=== PATIENT | female | born 1960 | race African-American/Black ===

== ENCOUNTER 2017-03-17 13:48 | Inpatient (IN) | payer OTHER ==
[2017-03-17 17:08] VITALS: BMI 30.3
--- NOTE | 2017-03-17 17:38 | HP ---
CIWA Score - CIWA Score Nausea/Vomitin Muscle Tremors: 3 Anxiety: 3 Agitation: 3 Paroxysmal Sweats: 2 Orientation: 0-Oriented Tacttile Disturbances: 2-Mild Itch/Numbness/Burn Auditory Disturbances: 2-Mild Harshness/Frighten Visual Disturbances: 2-Mild Sensitivity Headache: 2-Mild CIWA-Ar Total Score: 22 Admission ROS BHS - HPI Chief Complaint: I NEED HELP TO STOP DRINKING ALCOHOL Allergies/Adverse Reactions: Allergies Allergy/AdvReac Type Severity Reaction Status Date / Time chlorpromazine HCl Allergy Intermediate Swelling Verified 03/17/17 17:30 [From Thorazine] fluphenazine enanthate Allergy Verified 03/17/17 17:30 [From Prolixin] fluphenazine HCl Allergy Verified 03/17/17 17:30 [From Prolixin] molindone HCl [From Moban] Allergy Verified 03/17/17 17:30 thioridazine HCl Allergy Verified 03/17/17 17:30 [From Mellaril] thiothixene [From Navane] Allergy Verified 03/17/17 17:30 thiothixene HCl [From Navane] Allergy Verified 03/17/17 17:30 History of Present Illness: THIS 57 YEARS OLD FEMALE WITH ALCOHOL DEPENDENCE,SEEKING DETOX FROM ALCOHOL, LAST DETOX [facility] 08/15/15 TO 08/19/15 SYNCOPE 2 MOTHS AGO LONGEST PERIOD OF SOBRIETY 2 YEARS GLAUCOMA SCHIZOPHRENIA Exam Limitations: No Limitations - Ebola screening Have you traveled outside of the country in the last 21 days: No Have you had contact with anyone from an Ebola affected area: No Have you been sick,other than usual withdrawal symptoms: No Do you have a fever: No - Review of Systems Constitutional: Loss of Appetite, Malaise, Changes in sleep, Weakness EENT: reports: Nose Congestion, Other (GLAUCOMA POOR VISION BOTH EYES) Respiratory: reports: No Symptoms reported Cardiac: reports: No Symptoms Reported GI: reports: Diarrhea, Nausea, Poor Appetite, Vomiting : reports: No Symptoms Reported Musculoskeletal: reports: Back Pain, Muscle Pain Integumentary: reports: Dryness Neuro: reports: Headache, Tremors Endocrine: reports: No Symptoms Reported Hematology: reports: No Symptoms Reported Psychiatric: reports: other (PARANOID SCHIZOPHRENIA) Other Systems: Reviewed and Negative Patient History - Patient Medical History Hx Anemia: No Hx Asthma: No Hx Chronic Obstructive Pulmonary Disease (COPD): No Hx Cancer: No Hx Cardiac Disorders: No Hx Congestive Heart Failure: No Hx Hypertension: Yes (ON AMLOIDYPINE 10 MGS PO DAILY) Hx Hypercholesterolemia: No Hx Pacemaker: No HX Cerebrovascular Accident: No Hx Seizures: No Hx Dementia: No Hx Diabetes: No Hx Gastrointestinal Disorders: No Hx Liver Disease: No Hx Genitourinary Disorders: No Hx Sexually Transmitted Disorders: No Hx Renal Disease (ESRD): No Hx Thyroid Disease: No Hx Human Immunodeficiency Virus (HIV): No (NEGATIVE HX LAST 12/26) Hx Hepatitis C: No Hx Depression: Yes Hx Suicide Attempt: Yes (admitted to [facility] 06/2015) Hx Bipolar Disorder: No Hx Schizophrenia: Yes (PARANOID SCHIZOPHRENIA) Other Medical History: NO SUICIDAL,NO HOMICIDAL - Patient Surgical History Past Surgical History: No Hx Neurologic Surgery: No Hx Cataract Extraction: No Hx Cardiac Surgery: No Hx Lung Surgery: No Hx Breast Surgery: No Hx Breast Biopsy: No Hx Abdominal Surgery: No Hx Appendectomy: No Hx Cholecystectomy: No Hx Genitourinary Surgery: No Hx Section: No Hx Orthopedic Surgery: No Anesthesia Reaction: No - PPD History Documented Results: Negative w/o proof Date: 11/18/14 Results: negative PPD to be Administered?: Yes - Reproductive History Patient is a Female of Child Bearing Age (11 -55 yrs old): No Last Menstrual Period: 07/10/08 Patient : No - Smoking Cessation Smoking history: Current every day smoker Have you smoked in the past 12 months: Yes Aproximately how many cigarettes per day: 20 Cigars Per Day: 0 Hx Chewing Tobacco Use: No Initiated information on smoking cessation: Yes 'Breaking Loose' booklet given: 03/17/17 - Substance & Tx. History Hx Alcohol Use: Yes Hx Substance Use: Yes Substance Use Type: Alcohol Hx Substance Use Treatment: Yes ([facility] 08/15/15 TO 08/19/15) Family Disease History - Family Disease History Family Disease History: Other: Father (alcohol,), Mother (alcohol), Brother (alcohol), Sister (alcohol) Admission Physical Exam BHS - Vital Signs Vital Signs: Vital Signs - 24 hr 03/17/17 17:01 Temperature 97 F L Pulse Rate 110 H Respiratory 20 Rate Blood Pressure 132/82 - Physical General Appearance: Yes: Moderate Distress, Tremorous, Irritable, Sweating, Anxious HEENTM: Yes: Normal ENT Inspection, Normocephalic, ELMO, Nasal Congestion, Other (GLAUCOMA) Respiratory: Yes: Lungs Clear, Normal Breath Sounds, No Respiratory Distress Neck: Yes: Within Normal Limits Breast: Yes: Breast Exam Deferred Cardiology: Yes: Within Normal Limits, Regular Rhythm, Regular Rate, S1, S2 Abdominal: Yes: Within Normal Limits, Normal Bowel Sounds, Non Tender, Flat, Soft Genitourinary: Yes: Within Normal Limits Back: Yes: Normal Inspection, Muscle Spasm Musculoskeletal: Yes: Back pain, Muscle Pain Extremities: Yes: Tremors Neurological: Yes: book repairer II-XII NML intact, Fully Oriented, Alert, Motor Strength 5/5 Integumentary: Yes: Dry Lymphatic: Yes: Within Normal Limits - Diagnostic (1) Alcohol dependence with uncomplicated withdrawal Current Visit: Yes Status: Acute (2) Alcohol dependence with intoxication Current Visit: Yes Status: Acute (3) Glaucoma Current Visit: No Status: Chronic (4) Nicotine dependence Current Visit: No Status: Chronic (5) Obesity Current Visit: No Status: Chronic (6) Paranoid schizophrenia Current Visit: No Status: Chronic (7) Right knee injury Current Visit: No Status: Chronic (8) Syncope Current Visit: No Status: Suspected (9) Arthritis of both knees Current Visit: Yes Status: Acute Cleared for Admission [facility] - Detox or Rehab [facility] Level of Care: Medically Managed Detox Regimen/Protocol: Librium [facility] Breath Alcohol Content Breath Alcohol Content: 0.193 Urine Pregancy Test - Result Urine Test Results: Negative- NO Line Present Urine Drug Screen - Results Drug Screen Negative: Yes
[2017-03-17] MEDS ORDERED: hydrOXYzine PAMOATE 50 MG CAPSULE (FP) PO PRN (17:49)
[2017-03-17] MEDS ORDERED: ACETAMINOPHEN 325 MG TABLET (FP) PO PRN (17:49)
[2017-03-17] MEDS ORDERED: diphenhydrAMINE HCL 50 MG CAPSULE PO PRN (17:49)
[2017-03-17] MEDS ORDERED: LOPERAMIDE HCL 2 MG CAPSULE PO PRN (17:49)
[2017-03-17] MEDS ORDERED: MAGNESIUM CITRATE 300 ML BOTTLE PO PRN (17:49)
[2017-03-17] MEDS ORDERED: MAG HYDROX/AL HYDROX/SIMETH 30 ML UNIT-DOSE CUP PO PRN (17:49)
[2017-03-17] MEDS ORDERED: P-EPHED 60MG/TRIPROLIDI 2.5MG TABLET PO PRN (17:49)
[2017-03-17] MEDS ORDERED: MENTHOL/PHENOL 1 EACH UD MM PRN (17:49)
[2017-03-17] MEDS ORDERED: chlordiazePOXIDE HCL 25 MG CAPSULE PO PRN (17:49)
[2017-03-17] MEDS ORDERED: guaiFENesin/D-METHORPHAN HB 10 ML UNIT-DOSE CUPS PO PRN (17:49)
[2017-03-17] MEDS ORDERED: MAGNESIUM HYDROX 2400MG/30ML ORAL SUSPENSION 30 ML CUP PO PRN (17:49)
[2017-03-17] MEDS ORDERED: IBUPROFEN 400 MG TABLET (FP) PO PRN (17:49)
[2017-03-17] MEDS ORDERED: chlordiazePOXIDE HCL 25 MG CAPSULE PO ONE (19:00)
[2017-03-17] MEDS: NICOTINE 21 MG/24 HOURS TOPICAL PATCH TD SCH (19:54)
[2017-03-17] MEDS: TIMOLOL 0.5% OPHTHALMIC SOL 5 ML BOTTLE OU SCH (22:16)
[2017-03-17] MEDS: THIAMINE HCL 100 MG TABLET (FP) PO SCH (22:16)
[2017-03-17] MEDS: BENZTROPINE MESYLATE 1 MG TABLET (FP) PO SCH (22:16)
[2017-03-17] MEDS: chlordiazePOXIDE HCL 25 MG CAPSULE PO SCH (22:17)
[2017-03-17] MEDS: LATANOPROST 0.005% OPHTH SOLN 2.5ML BOTTLE OU SCH (23:01)
[2017-03-18 00:13] LABS: URINE APPEARANCE CLEAR; URINE BILIRUBIN NEGATIVE (NEGATIVE); URINE BLOOD NEGATIVE (NEGATIVE); URINE COLOR COLORLESS; URINE GLUCOSE (UA) NEGATIVE (NEGATIVE); URINE KETONE NEGATIVE (NEGATIVE); URINE LEUK ESTERASE NEGATIVE (NEGATIVE); URINE NITRITE NEGATIVE (NEGATIVE); URINE PROTEIN NEGATIVE (NEGATIVE); URINE UROBILINOGEN NEGATIVE E.U./dl (0.2-1.0)
[2017-03-18] MEDS: chlordiazePOXIDE HCL 25 MG CAPSULE PO SCH ×4 (05:45→22:21)
--- NOTE | 2017-03-18 07:15 | CONSULT ---
[facility] Psychiatric Consult - Data Date of interview: 03/18/17 Admission source: [facility] Identifying data: This isn 57 years old female with psychiatric hospitalization history, history of Schizophrenia, Substance Abuse History: - Smoking Cessation. Smoking history: Current every day smoker. Have you smoked in the past 12 months: Yes. Aproximately how many cigarettes per day: 20. Cigars Per Day: 0. Hx Chewing Tobacco Use: No. Initiated information on smoking cessation: Yes. 'Breaking Loose' booklet given : 03/17/17. - Substance & Tx. History. Hx Alcohol Use: Yes. Hx Substance Use : Yes. Substance Use Type: Alcohol. Hx Substance Use Treatment: Yes ([facility] 01/24 TO 08/19/15) Medical History: Both knees arthritis, Obesity, Glaucoma history, Syncope history, Psychiatric History: Patient reports history of Paranoid Schizophrenia with monthly Haldol decanoate injections, last one 02/24/2017 - 75ml. Cogenitin 1mg po bid Physical/Sexual Abuse/Trauma History: Denies Additional Comment: Haldol decanoate injections, last one 02/24/2017 - 75ml. Cogenitin 1mg po bid Mental Status Exam - Mental Status Exam Alert and Oriented to: Person Cognitive Function: Fair Patient Appearance: Unkempt Mood: Sad Affect: Flat Patient Behavior: Sedated Speech Pattern: Delayed Voice Loudness: Mildly Soft/Quiet Thought Process: Circumstantial, Goal Oriented Thought Disorder: Being Controlled Hallucinations: Denies Suicidal Ideation: Denies Homicidal Ideation: Denies Insight/Judgement: Fair Sleep: Difficulty falling asleep Appetite: Weight gain Muscle strength/Tone: Mild Hypotonicity Gait/Station: Shuffling Additional Comments: Haldol decanoate injections, last one 02/24/2017 - 75ml. Cogenitin 1mg po bid Psychiatric Findings - Problem List ([place] 1, 2,3) (1) Alcohol dependence with intoxication Current Visit: Yes Status: Acute (2) Alcohol dependence with uncomplicated withdrawal Current Visit: Yes Status: Acute (3) Cocaine abuse Current Visit: No Status: Acute (4) PCP abuse Current Visit: No Status: Acute (5) Alcohol dependence Current Visit: No Status: Chronic (6) Cannabis dependence Current Visit: No Status: Chronic (7) Nicotine dependence Current Visit: No Status: Chronic (8) Paranoid schizophrenia Current Visit: No Status: Chronic - Initial Treatment Plan Initial Treatment Plan: Haldol decanoate injections, last one 02/24/2017 - 75ml. Cogenitin 1mg po bid
[2017-03-18 10:01] LABS: ALBUMIN 3.8 g/dl (3.4-5.0); ANION GAP 7 (8-16); CALCIUM 10.4 mg/dL (8.5-10.1); CO2 29 mmol/L (21-32); COCKROFT - GAULT 119.3655; CREATININE 0.7 mg/dL (0.55-1.02); GLUCOSE,RANDOM 84 mg/dL (74-106); SGOT/AST 27 U/L (15-37); SGPT/ALT 20 U/L (12-78)
[2017-03-18 10:03] LABS: ALK PHOS 87 U/L (45-117); BILIRUBIN,TOTAL 0.6 mg/dL (0.2-1.0); TOT PROT 7.3 g/dl (6.4-8.2)
[2017-03-18 10:08] LABS: MCHC 32.4 g/dl (32.0-36.0); MEAN CELL VOLUME 89.6 fl (80-96); MEAN PLT VOLUME 8.7 fl (7.5-11.1); PLATELET COUNT 276 K/MM3 (134-434); RDW 12.8 % (11.6-15.6); WHITE BLOOD COUNT 4.4 K/mm3 (4.0-10.0)
--- NOTE | 2017-03-18 10:10 | PN ---
S CIWA - CIWA Score Nausea/Vomitin-No Nausea/No Vomiting Muscle Tremors: 4-Moderate,w/Arms Extend Anxiety: 3 Agitation: 4-Moderately Restless Paroxysmal Sweats: 3 Orientation: 0-Oriented Tacttile Disturbances: 0-None Auditory Disturbances: 0-None Visual Disturbances: 0-None Headache: 1-Very Mild CIWA-Ar Total Score: 15 BHS Progress Note (SOAP) Subjective: body aches agitation anxiety headache back ache tired Objective: 03/18/17 10:07 Vital Signs Temperature 91.1 F 03/18/17 10:00 Pulse Rate 81 03/18/17 10:11 Respiratory Rate 16 03/18/17 10:11 Blood Pressure 158/110 03/18/17 10:11 O2 Sat by Pulse Oximetry (%) Laboratory Tests 03/17/17 03/18/17 18:46 07:00 Sodium 139 Potassium 4.4 Chloride 103 Carbon Dioxide 29 D Anion Gap 7 L BUN 8 D Creatinine 0.7 D Creat Clearance w eGFR > 60 Random Glucose 84 Calcium 10.4 H Total Bilirubin 0.6 D AST 27 D ALT 20 D Alkaline Phosphatase 87 Total Protein 7.3 Albumin 3.8 Urine Color Colorless Urine Appearance Clear Urine pH 5.0 Urine Protein Negative Urine Glucose (UA) Negative Urine Ketones Negative Urine Blood Negative Urine Nitrite Negative Urine Bilirubin Negative Urine Urobilinogen Negative Ur Leukocyte Esterase Negative awake/alert lying in bed no acute distress labs pending Assessment: 03/18/17 10:09 withdrawal sx Plan: continue detox increase fluids clonidine 0.1mg x one monitor BP f/u labs
[2017-03-18] MEDS ORDERED: cloNIDine HCL 0.1 MG TABLET PO ONE (10:18)
[2017-03-18] MEDS: PRENATAL VITAMINS W/ FOLIC ACID TABLET (FP) PO SCH (10:22)
[2017-03-18] MEDS: amLODIPine BESYLATE 10 MG TABLET (FP) PO SCH (10:22)
[2017-03-18] MEDS: TIMOLOL 0.5% OPHTHALMIC SOL 5 ML BOTTLE OU SCH ×2 (10:23→22:22)
[2017-03-18] MEDS: BENZTROPINE MESYLATE 1 MG TABLET (FP) PO SCH ×2 (10:23→22:20)
[2017-03-18] MEDS: NICOTINE 21 MG/24 HOURS TOPICAL PATCH TD SCH (10:23)
--- NOTE | 2017-03-18 11:43 | EKG ---
Test Reason : Blood Pressure : / mmHG Vent. Rate : 091 BPM Atrial Rate : 091 BPM P-R Int : 154 ms QRS Dur : 082 ms QT Int : 374 ms P-R-T Axes : 055 017 -12 degrees QTc Int : 460 ms NORMAL SINUS RHYTHM POSSIBLE LEFT ATRIAL ENLARGEMENT SEPTAL INFARCT , AGE UNDETERMINED ABNORMAL ECG NO PREVIOUS ECGS AVAILABLE Confirmed by LAKEISHA GALE MD ([id number]) on 03/18/2017 11:43:08 AM Referred By: Confirmed By:LAKEISHA GALE MD
[2017-03-18 14:55] LABS: HIV 1 & 2 AB NEGATIVE; HIV 1 AGp24 NEGATIVE
[2017-03-18] MEDS: THIAMINE HCL 100 MG TABLET (FP) PO SCH (22:20)
[2017-03-18] MEDS: LATANOPROST 0.005% OPHTH SOLN 2.5ML BOTTLE OU SCH (22:21)
[2017-03-19] MEDS: chlordiazePOXIDE HCL 25 MG CAPSULE PO SCH ×3 (05:18→17:02)
[2017-03-19] MEDS: PRENATAL VITAMINS W/ FOLIC ACID TABLET (FP) PO SCH (10:23)
[2017-03-19] MEDS: TIMOLOL 0.5% OPHTHALMIC SOL 5 ML BOTTLE OU SCH ×2 (10:23→22:06)
[2017-03-19] MEDS: amLODIPine BESYLATE 10 MG TABLET (FP) PO SCH (10:23)
[2017-03-19] MEDS: BENZTROPINE MESYLATE 1 MG TABLET (FP) PO SCH ×2 (10:23→22:07)
[2017-03-19] MEDS: NICOTINE 21 MG/24 HOURS TOPICAL PATCH TD SCH (10:24)
--- NOTE | 2017-03-19 10:54 | PN ---
S CIWA - CIWA Score Nausea/Vomitin-No Nausea/No Vomiting Muscle Tremors: 4-Moderate,w/Arms Extend Anxiety: 3 Agitation: 4-Moderately Restless Paroxysmal Sweats: 3 Orientation: 0-Oriented Tacttile Disturbances: 0-None Auditory Disturbances: 0-None Visual Disturbances: 0-None Headache: 0-None Present CIWA-Ar Total Score: 14 BHS Progress Note (SOAP) Subjective: interrupted sleep body aches sweats Objective: 03/19/17 10:54 Vital Signs Temperature 97.7 F 03/19/17 09:44 Pulse Rate 89 03/19/17 09:44 Respiratory Rate 20 03/19/17 09:44 Blood Pressure 116/87 03/19/17 09:44 O2 Sat by Pulse Oximetry (%) Laboratory Tests 03/17/17 03/18/17 03/18/17 18:46 07:00 07:00 WBC 4.4 RBC 5.09 Hgb 14.7 Hct 45.6 H MCV 89.6 MCHC 32.4 RDW 12.8 D Plt Count 276 D MPV 8.7 Sodium Potassium Chloride Carbon Dioxide Anion Gap BUN Creatinine Creat Clearance w eGFR Random Glucose Calcium Total Bilirubin AST ALT Alkaline Phosphatase Total Protein Albumin Urine Color Colorless Urine Appearance Clear Urine pH 5.0 Ur Specific [place] <= 1.005 Urine Protein Negative Urine Glucose (UA) Negative Urine Ketones Negative Urine Blood Negative Urine Nitrite Negative Urine Bilirubin Negative Urine Urobilinogen Negative Ur Leukocyte Esterase Negative RPR Titer HIV 1&2 Antibody Screen Negative HIV P24 Antigen Negative 03/18/17 03/18/17 07:00 07:00 WBC RBC Hgb Hct MCV MCHC RDW Plt Count MPV Sodium 139 Potassium 4.4 Chloride 103 Carbon Dioxide 29 D Anion Gap 7 L BUN 8 D Creatinine 0.7 D Creat Clearance w eGFR > 60 Random Glucose 84 Calcium 10.4 H Total Bilirubin 0.6 D AST 27 D ALT 20 D Alkaline Phosphatase 87 Total Protein 7.3 Albumin 3.8 Urine Color Urine Appearance Urine pH Ur Specific [place] Urine Protein Urine Glucose (UA) Urine Ketones Urine Blood Urine Nitrite Urine Bilirubin Urine Urobilinogen Ur Leukocyte Esterase RPR Titer Nonreactive HIV 1&2 Antibody Screen HIV P24 Antigen awake/alert ambulating no acute distress Assessment: 03/19/17 10:54 withdrawal sx Plan: continue detox increase fluids
[2017-03-19] MEDS: chlordiazePOXIDE 5 MG CAPSULE PO SCH (22:07)
[2017-03-19] MEDS: LATANOPROST 0.005% OPHTH SOLN 2.5ML BOTTLE OU SCH (22:07)
[2017-03-19] MEDS: THIAMINE HCL 100 MG TABLET (FP) PO SCH (22:07)
[2017-03-20] MEDS: chlordiazePOXIDE 5 MG CAPSULE PO SCH ×3 (05:45→17:23)
--- NOTE | 2017-03-20 10:18 | PN ---
BHS Progress Note (SOAP) Subjective: agitation feeling better Objective: 03/20/17 10:17 Vital Signs Temperature 97.7 F 03/20/17 10:13 Pulse Rate 83 03/20/17 10:13 Respiratory Rate 18 03/20/17 10:13 Blood Pressure 123/82 03/20/17 10:13 O2 Sat by Pulse Oximetry (%) awake/alert ambulating no acute distress Assessment: 03/20/17 10:18 withdrawal sx Plan: continue detox increase fluids d/c in am
[2017-03-20] MEDS: TIMOLOL 0.5% OPHTHALMIC SOL 5 ML BOTTLE OU SCH ×2 (10:29→22:17)
[2017-03-20] MEDS: amLODIPine BESYLATE 10 MG TABLET (FP) PO SCH (10:29)
[2017-03-20] MEDS: PRENATAL VITAMINS W/ FOLIC ACID TABLET (FP) PO SCH (10:29)
[2017-03-20] MEDS: NICOTINE 21 MG/24 HOURS TOPICAL PATCH TD SCH (10:30)
[2017-03-20] MEDS: BENZTROPINE MESYLATE 1 MG TABLET (FP) PO SCH ×2 (10:31→22:16)
[2017-03-20] MEDS: chlordiazePOXIDE HCL 10 MG CAPSULE PO SCH (22:16)
[2017-03-20] MEDS: LATANOPROST 0.005% OPHTH SOLN 2.5ML BOTTLE OU SCH (22:16)
[2017-03-20] MEDS: THIAMINE HCL 100 MG TABLET (FP) PO SCH (22:16)
[2017-03-21] MEDS: chlordiazePOXIDE HCL 10 MG CAPSULE PO SCH ×2 (05:26→10:21)
[2017-03-21 06:22] VITALS: BP 119/85; PULSE 70; TEMP 97.7
--- NOTE | 2017-03-21 10:09 | PN ---
S Progress Note (SOAP) Subjective: ALERT,NO COMPLAINT Objective: 03/21/17 10:07 Vital Signs Temperature 97.7 F 03/21/17 06:21 Pulse Rate 70 03/21/17 06:21 Respiratory Rate 18 03/21/17 06:21 Blood Pressure 119/85 03/21/17 06:21 O2 Sat by Pulse Oximetry (%) Assessment: 03/21/17 10:08 DETOX COMPLETED,NO WITHDRAWAL SYMPTOM Plan: DISCHARGE TODAY,FOLLOW UP WITH AFTER CARE PROGRAM ARRANGEMENT
--- NOTE | 2017-03-21 10:12 | DS ---
[facility] Detox Discharge Summary Admission Date: 03/17/17 Discharge Date: 03/21/17 - History Present History: Alcohol Dependence Additional Comments: FOLLOW UP WITH AFTER CARE PROGRAM ARRANGEMENT Pertinent Past History: GLAUCOMA OBESITY PARANOID SCHIZOPHRENIA RIGHT KNEE INJURY SYNCOPE ARTHRITIS BOTH KNEES - Physical Exam Results Vital Signs: Vital Signs Temperature 97.7 F 03/21/17 06:21 Pulse Rate 70 03/21/17 06:21 Respiratory Rate 18 03/21/17 06:21 Blood Pressure 119/85 03/21/17 06:21 O2 Sat by Pulse Oximetry (%) Pertinent Admission Physical Exam Findings: WITHDRAWAL SYMPTOM - Treatment Hospital Course: Detox Protocol Followed, Detoxed Safely, Responded well, Discharged Condition Good Patient has Accepted a Rehab Referral to: DECLINED - Medication Discharge Medications: Ambulatory Orders Bimatoprost [Lumigan] 1 drop IO HS 11/16/14 Haloperidol Decanoate [Haldol Decanoate 100] 75 mg IM MONTHLY 11/16/14 Ketotifen Fumarate [Alaway] 10 ml OP BID 02/20/15 Latanoprost 0.005% Eye Drops [Xalatan 0.005% Eye Drops -] 1 drop OU HS #1 bot Benztropine Mesylate [Cogentin -] 1 mg PO BID #60 tablet 08/16/15 Amlodipine Besylate [Norvasc -] 10 mg PO DAILY #30 tablet 08/19/15 - Diagnosis (1) Alcohol dependence with uncomplicated withdrawal Current Visit: Yes Status: Acute (2) Alcohol dependence with intoxication Current Visit: Yes Status: Acute (3) Glaucoma Current Visit: No Status: Chronic (4) Nicotine dependence Current Visit: No Status: Chronic (5) Obesity Current Visit: No Status: Chronic (6) Paranoid schizophrenia Current Visit: No Status: Chronic (7) Right knee injury Current Visit: No Status: Chronic (8) Syncope Current Visit: No Status: Suspected (9) Arthritis of both knees Current Visit: Yes Status: Acute - AMA Did Patient Leave Against Medical Advice: No
[2017-03-21] MEDS: PRENATAL VITAMINS W/ FOLIC ACID TABLET (FP) PO SCH (10:21)
[2017-03-21] MEDS: amLODIPine BESYLATE 10 MG TABLET (FP) PO SCH (10:22)
[2017-03-21] MEDS: NICOTINE 21 MG/24 HOURS TOPICAL PATCH TD SCH (10:22)
[2017-03-21] MEDS: TIMOLOL 0.5% OPHTHALMIC SOL 5 ML BOTTLE OU SCH (10:22)
[2017-03-21] MEDS: BENZTROPINE MESYLATE 1 MG TABLET (FP) PO SCH (10:23)
== END 2017-03-21 10:19 | disposition home or self-care (01) | DRG 897 ==
LOC: YASAS 13:48 → Y6N 18:35
PROVIDERS: ADMIT Internal Medicine; ATTEND Internal Medicine
PROC: HZ2ZZZZ Detoxification Services for Substance Abuse Treatment (ICD-10-PCS; principal; 2017-03-17)
DX: F10.230 Alcohol dependence with withdrawal, uncomplicated (principal); F20.0 Paranoid schizophrenia; F17.210 Nicotine dependence, cigarettes, uncomplicated; I10 Essential (primary) hypertension; H26.9 Unspecified cataract; E66.9 Obesity, unspecified; Z68.30 Body mass index [BMI] 30.0-30.9, adult; M13.862 Other specified arthritis, left knee; M13.861 Other specified arthritis, right knee; Z86.79 Personal history of other diseases of the circulatory system; Z91.5 Personal history of self-harm
CPT/HCPCS: 36415; 80053; 81003; 85027; 86593; 87389; 93005; 93010; J0735

== ENCOUNTER 2018-07-23 10:44 | Inpatient (IN) | payer OTHER ==
[2018-07-23 11:11] VITALS: BMI 29.3
--- NOTE | 2018-07-23 12:15 | HP ---
CIWA Score - CIWA Score Nausea/Vomitin Muscle Tremors: 2 Anxiety: 2 Agitation: 2 Paroxysmal Sweats: 1-Minimal Palms Moist Orientation: 0-Oriented Tacttile Disturbances: 1-Very Mild Itch/Numbness Auditory Disturbances: 1-Very Mild Visual Disturbances: 1-Very Mild Sensitivity Headache: 2-Mild CIWA-Ar Total Score: 14 Admission ROS S - HPI Chief Complaint: i need help to stop drinking alcohol Allergies/Adverse Reactions: Allergies Allergy/AdvReac Type Severity Reaction Status Date / Time chlorpromazine HCl Allergy Intermediate Swelling Verified 07/23/18 11:59 [From Thorazine] fluphenazine enanthate Allergy Verified 07/23/18 11:59 [From Prolixin] fluphenazine HCl Allergy Verified 07/23/18 11:59 [From Prolixin] molindone HCl [From Moban] Allergy Verified 07/23/18 11:59 thioridazine HCl Allergy Verified 07/23/18 11:59 [From Mellaril] thiothixene [From Navane] Allergy Verified 07/23/18 11:59 thiothixene HCl [From Navane] Allergy Verified 07/23/18 11:59 History of Present Illness: this 58 years old female with alcohol dependence,seeking detox,withdrawal symptom,last detox [facility] 03/17/17 to 03/21/17 hypertension,glaucoma,arthritis right knee had biopsy left breast at [facility] last week follow up with pmd nicotine dependence paranoid schizophrenia poor dental with missing teeth longest period of sobriety 2 years history of black out - Ebola screening Have you traveled outside of the country in the last 21 days: No Have you had contact with anyone from an Ebola affected area: No Have you been sick,other than usual withdrawal symptoms: No Do you have a fever: No - Review of Systems Constitutional: Malaise, Night Sweats, Changes in sleep EENT: reports: Nose Congestion Respiratory: reports: No Symptoms reported Cardiac: reports: No Symptoms Reported GI: reports: Nausea, Indigestion, Abdominal cramping : reports: No Symptoms Reported Musculoskeletal: reports: Back Pain, Muscle Pain Integumentary: reports: Dryness Neuro: reports: Headache, Tremors Endocrine: reports: No Symptoms Reported Hematology: reports: No Symptoms Reported Psychiatric: reports: No Sypmtoms Reported, Judgement Intact, Mood/Affect Appropiate, Orientated x3 (paranoid schizophrenia) Patient History - Patient Medical History Hx Anemia: No Hx Asthma: No Hx Chronic Obstructive Pulmonary Disease (COPD): No Hx Cancer: No Hx Cardiac Disorders: No Hx Congestive Heart Failure: No Hx Hypertension: Yes (ON AMLOIDYPINE 10 MGS PO DAILY) Hx Hypercholesterolemia: No Hx Pacemaker: No HX Cerebrovascular Accident: No Hx Seizures: No Hx Dementia: No Hx Diabetes: No Hx Gastrointestinal Disorders: No Hx Liver Disease: No Hx Genitourinary Disorders: No Hx Sexually Transmitted Disorders: No Hx Renal Disease (ESRD): No Hx Thyroid Disease: No Hx Human Immunodeficiency Virus (HIV): No (NEGATIVE HX LAST 04/28 ) Hx Hepatitis C: No Hx Depression: Yes Hx Suicide Attempt: Yes (admitted to [facility] 06/2015) Hx Bipolar Disorder: No Hx Schizophrenia: Yes (PARANOID SCHIZOPHRENIA) Other Medical History: no suicidal,no homicidal - Patient Surgical History Past Surgical History: No Hx Neurologic Surgery: No Hx Cataract Extraction: No Hx Cardiac Surgery: No Hx Lung Surgery: No Hx Breast Surgery: No Hx Breast Biopsy: Yes (biopsy left breast last week at [place]) Hx Abdominal Surgery: No Hx Appendectomy: No Hx Cholecystectomy: No Hx Genitourinary Surgery: No Hx Section: No Hx Orthopedic Surgery: No Anesthesia Reaction: No - PPD History Previous Implant?: Yes Documented Results: Negative w/o proof Date: 03/19/17 Results: negative PPD to be Administered?: Yes - Reproductive History Patient is a Female of Child Bearing Age (11 -55 yrs old): No Last Menstrual Period: 07/10/08 Patient : No - Smoking Cessation Smoking history: Current every day smoker Have you smoked in the past 12 months: Yes Aproximately how many cigarettes per day: 20 Cigars Per Day: 0 Hx Chewing Tobacco Use: No Initiated information on smoking cessation: Yes 'Breaking Loose' booklet given: 07/23/18 - Substance & Tx. History Hx Alcohol Use: Yes Hx Substance Use: No Substance Use Type: Alcohol Hx Substance Use Treatment: Yes ([facility] 03/17/17 to 03/21/17) Family Disease History - Family Disease History Family Disease History: Other: Father (alcohol,), Mother (alcohol), Brother (alcohol), Sister (alcohol) Admission Physical Exam BHS - Vital Signs Vital Signs: Vital Signs - 24 hr 07/23/18 11:07 Temperature 98.2 F Pulse Rate 100 H Respiratory 18 Rate Blood Pressure 154/89 - Physical General Appearance: Yes: Tremorous, Irritable, Anxious HEENTM: Yes: Normal ENT Inspection, ELMO, Pharynx Normal (glaucoma) Respiratory: Yes: Lungs Clear, Normal Breath Sounds, No Respiratory Distress Neck: Yes: Within Normal Limits, Supple, Trachea in good position Breast: Yes: Breast Exam Deferred (history of breast biopsy left in [facility],follow up by pmd) Cardiology: Yes: Within Normal Limits, Regular Rhythm, Regular Rate Abdominal: Yes: Within Normal Limits, Normal Bowel Sounds, Soft, Organomegaly Genitourinary: Yes: Within Normal Limits Back: Yes: Muscle Spasm Musculoskeletal: Yes: Back pain, Muscle Pain Extremities: Yes: Tremors Neurological: Yes: block stacker II-XII NML intact, Fully Oriented, Alert, Motor Strength 5/5 Integumentary: Yes: Dry, Rash (both buttocks) Lymphatic: Yes: Within Normal Limits - Diagnostic (1) Alcohol dependence with uncomplicated withdrawal Current Visit: No Status: Acute (2) Alcohol dependence with intoxication Current Visit: No Status: Acute (3) Arthritis of both knees Current Visit: No Status: Acute (4) Glaucoma Current Visit: No Status: Chronic (5) Paranoid schizophrenia Current Visit: No Status: Chronic (6) Syncope Current Visit: No Status: Suspected (7) Essential hypertension Current Visit: Yes Status: Acute (8) History of left breast biopsy Current Visit: Yes Status: Acute (9) Rash Current Visit: Yes Status: Acute Cleared for Admission [facility] - Detox or Rehab [facility] Level of Care: Medically Managed Detox Regimen/Protocol: Librium [facility] Breath Alcohol Content Breath Alcohol Content: 0.276 Urine Pregancy Test - Result Urine Test Results: Negative- NO Line Present Urine Drug Screen - Results Drug Screen Negative: No Urine Drug Screen Results: HUMBERTO-Cocaine
[2018-07-23] MEDS ORDERED: LOPERAMIDE HCL 2 MG CAPSULE PO PRN (12:29)
[2018-07-23] MEDS ORDERED: MAG HYDROX/AL HYDROX/SIMETH 30 ML UNIT-DOSE CUP PO PRN (12:29)
[2018-07-23] MEDS ORDERED: P-EPHED 60MG/TRIPROLIDI 2.5MG TABLET PO PRN (12:29)
[2018-07-23] MEDS ORDERED: MENTHOL/PHENOL 1 EACH UD MM PRN (12:29)
[2018-07-23] MEDS ORDERED: guaiFENesin/D-METHORPHAN HB 10 ML UNIT-DOSE CUPS PO PRN (12:29)
[2018-07-23] MEDS ORDERED: MAGNESIUM CITRATE 300 ML BOTTLE PO PRN (12:29)
[2018-07-23] MEDS ORDERED: MAGNESIUM HYDROX 2400MG/30ML ORAL SUSPENSION 30 ML CUP PO PRN (12:29)
[2018-07-23] MEDS ORDERED: ACETAMINOPHEN 325 MG TABLET (FP) PO PRN (12:29)
[2018-07-23] MEDS ORDERED: IBUPROFEN 400 MG TABLET (FP) PO PRN (12:29)
[2018-07-23] MEDS ORDERED: chlordiazePOXIDE HCL 25 MG CAPSULE PO PRN (12:29)
[2018-07-23] MEDS: NICOTINE 21 MG/24 HOURS TOPICAL PATCH TD SCH (14:42)
--- NOTE | 2018-07-23 14:42 | CONSULT ---
[facility] Psychiatric Consult - Data Date of interview: 07/23/18 Admission source: [facility] Identifying data: This is one of multiple admissions to [facility] for this 55 y/ o AA female seeking detoxification treatment on (alcohol dependence). Patient is single without children,homeless (fdc),unemployed and supported on SSI/SSD benefits. Substance Abuse History: Discussed with the patient.Ms Durand confirms a history of heavy alcohol dependence spanning several years. Smoking history: Current every day smoker. Have you smoked in the past 12 months: Yes. Aproximately how many cigarettes per day: 20. Cigars Per Day: 0. Hx Chewing Tobacco Use: No. Initiated information on smoking cessation: Yes. 'Breaking Loose' booklet given: 07/23/18. - Substance & Tx. History. Hx Alcohol Use: Yes. Hx Substance Use: No. Substance Use Type: Alcohol. Hx Substance Use Treatment: Yes ([facility] 03/17/17 to 03/21/17) Medical History: Glaucoma,hypertension,arthritis (right knee) and recent history of biopsy of left breast (two weeks ago). Results of biopsy : still pending. Psychiatric History: Onset of mental illness at age 18 - 19 (auditory hallucinations,paranoid ideation,behavioral disturbances,poor general functioning).Patient is diagnosed with Paranoid Schizophrenia.Ms Durand gets OPD psychiatric services at the [facility] ([facility]), under the care of Dr Jaleesa Bustamante ([phone]) who managed this patient on a mothly regimen of haloperidol decanoate 75 mg IM + cogentin 1 mg po bid. Patient indicates that she is due for her injection today. Confirmed by her psychiatrist,Dr Bustamante (last injection : 06/25/18). The patient presents with a history of " more than 15 rehospitalizations " over the years. History of one suicide attempt via overdose of ASA in the . Physical/Sexual Abuse/Trauma History: Patient denies history of abuse. Additional Comment: Urine Drug Screen Results: HUMBERTO-Cocaine.Noted. Mental Status Exam - Mental Status Exam Alert and Oriented to: Time, Place, Person Cognitive Function: Good Patient Appearance: Well Groomed Mood: Hopeful, Euthymic Affect: Appropriate, Normal Range Patient Behavior: Appropriate, Cooperative Speech Pattern: Clear Voice Loudness: Normal Thought Process: Intact, Goal Oriented Thought Disorder: Not Present Hallucinations: Denies Suicidal Ideation: Denies Homicidal Ideation: Denies Insight/Judgement: Fair Sleep: Well Appetite: Good Muscle strength/Tone: Normal Gait/Station: Normal Psychiatric Findings - Problem List ([place] 1, 2,3) (1) Alcohol dependence with uncomplicated withdrawal Current Visit: Yes Status: Acute (2) Cocaine abuse Current Visit: Yes Status: Acute (3) Nicotine dependence Current Visit: Yes Status: Acute (4) Paranoid schizophrenia Current Visit: Yes Status: Chronic - Initial Treatment Plan Initial Treatment Plan: Psychoeducation.Sleep hygiene.Detoxification in progress.Contact established with Dr Bustamante via telephone ([phone]) : medications verified. Resumed : haldol decanoate 75 mg IM + cogentin 1 mg po bid. Side effects/benefits discussed with the patient.Ms durand agrees to this plan of care.Observation.
[2018-07-23] MEDS ORDERED: HALOPERIDOL DECANOATE 100 MG/ML IM SCH (17:00)
[2018-07-23 18:14] LABS: URINE APPEARANCE SLCLOUDY; URINE BILIRUBIN NEGATIVE (<2.0 mg/dL); URINE COLOR LTYELLOW; URINE GLUCOSE (UA) NEGATIVE (NEGATIVE); URINE KETONE NEGATIVE (NEGATIVE); URINE LEUK ESTERASE TRACE (NEGATIVE); URINE NITRITE NEGATIVE (NEGATIVE); URINE PROTEIN NEGATIVE (NEGATIVE); URINE UROBILINOGEN NEGATIVE mg/dL (0.2-1.0)
[2018-07-23] MEDS: chlordiazePOXIDE HCL 25 MG CAPSULE PO SCH ×2 (18:23→22:30)
[2018-07-23 18:30] LABS: EPI CELLS MODERATE /HPF (FEW)
[2018-07-23] MEDS ORDERED: PATIENT'S OWN MEDICATION (NON-FORMULARY) (Dorzolamide Hcl/Timolol Maleat [Cosopt Eye Drops OU SCH (22:00)
[2018-07-23] MEDS ORDERED: MELATONIN 5 MG TABLETS PO PRN (22:00)
[2018-07-23] MEDS: BENZTROPINE MESYLATE 1 MG TABLET (FP) PO SCH (22:30)
[2018-07-23] MEDS: THIAMINE HCL 100 MG TABLET (FP) PO SCH (22:30)
[2018-07-23] MEDS: LATANOPROST 0.005% OPHTH SOLN 2.5ML BOTTLE OU SCH (22:30)
[2018-07-23] MEDS: DORZOLAMIDE 2% HCL OPHTHALMIC SOLUTION 10 ML BOTTLE OU SCH (22:30)
[2018-07-24] MEDS: TIMOLOL 0.5% OPHTHALMIC SOL 5 ML BOTTLE OU SCH ×3 (00:37→22:28)
[2018-07-24] MEDS: chlordiazePOXIDE HCL 25 MG CAPSULE PO SCH ×4 (06:12→22:27)
[2018-07-24] MEDS ORDERED: cloNIDine HCL 0.1 MG TABLET PO ONE (06:51)
--- NOTE | 2018-07-24 06:54 | PN ---
[facility] Progress Note Note: Patient;s blood pressure is B/P 160/105. Patient is asymptomatic Vital Signs Temperature 98.1 F 07/24/18 06:50 Pulse Rate 76 07/24/18 06:50 Respiratory Rate 20 07/24/18 06:50 Blood Pressure 160/105 H 07/24/18 06:50 O2 Sat by Pulse Oximetry (%) ACTION: Clonidine 0.1mg tablet ordered
[2018-07-24] MEDS: PRENATAL VITAMINS W/ FOLIC ACID TABLET (FP) PO SCH (10:14)
[2018-07-24] MEDS: BENZTROPINE MESYLATE 1 MG TABLET (FP) PO SCH ×2 (10:14→22:27)
[2018-07-24] MEDS: amLODIPine BESYLATE 10 MG TABLET (FP) PO SCH (10:14)
[2018-07-24] MEDS: NICOTINE 21 MG/24 HOURS TOPICAL PATCH TD SCH (10:14)
[2018-07-24] MEDS: DORZOLAMIDE 2% HCL OPHTHALMIC SOLUTION 10 ML BOTTLE OU SCH ×2 (10:17→22:28)
[2018-07-24 11:04] LABS: HEMATOCRIT 41.2 % (32.4-45.2); HEMOGLOBIN 13.4 GM/dL (10.7-15.3); MCH 30.2 pg (25.7-33.7); MCHC 32.6 g/dl (32.0-36.0); MEAN CELL VOLUME 92.6 fl (80-96); MEAN PLT VOLUME 9.1 fl (7.5-11.1); PLATELET COUNT 390 K/MM3 (134-434); RBC 4.45 M/mm3 (3.60-5.2); RDW 13.4 % (11.6-15.6); WHITE BLOOD COUNT 6.2 K/mm3 (4.0-10.0)
[2018-07-24 11:13] LABS: ALBUMIN 3.6 g/dl (3.4-5.0); ALK PHOS 103 U/L (45-117); ANION GAP 14 MMOL/L (8-16); BILIRUBIN,TOTAL 0.4 mg/dL (0.2-1); BLOOD UREA NITROGEN 6 mg/dL (7-18); CALCIUM 9.6 mg/dL (8.5-10.1); CHLORIDE 102 mmol/L (98-107); CO2 22 mmol/L (21-32); CREATININE 0.7 mg/dL (0.55-1.3); GLUCOSE,RANDOM 107 mg/dL (74-106); POTASSIUM 3.7 mmol/L (3.5-5.1); SGOT/AST 28 U/L (15-37); SGPT/ALT 28 U/L (13-61); SODIUM 139 mmol/L (136-145); TOT PROT 7.3 g/dl (6.4-8.2)
--- NOTE | 2018-07-24 12:50 | PN ---
[facility] CIWA - CIWA Score Nausea/Vomitin-No Nausea/No Vomiting Muscle Tremors: 2 Anxiety: 3 Agitation: 3 Paroxysmal Sweats: 2 Orientation: 0-Oriented Tacttile Disturbances: 1-Very Mild Itch/Numbness Auditory Disturbances: 0-None Visual Disturbances: 0-None Headache: 1-Very Mild CIWA-Ar Total Score: 12 S Progress Note (SOAP) Subjective: fatigue, interrupted sleep, diarrhea Objective: 07/24/18 12:47 Vital Signs Temperature 98.4 F 07/24/18 10:13 Pulse Rate 83 07/24/18 10:13 Respiratory Rate 18 07/24/18 10:13 Blood Pressure 164/99 07/24/18 10:13 O2 Sat by Pulse Oximetry (%) Laboratory Last Values WBC 6.2 K/mm3 (4.0-10.0) 07/24/18 06:00 RBC 4.45 M/mm3 (3.60-5.2) 07/24/18 06:00 Hgb 13.4 GM/dL (10.7-15.3) 07/24/18 06:00 Hct 41.2 % (32.4-45.2) 07/24/18 06:00 MCV 92.6 fl (80-96) 07/24/18 06:00 MCH 30.2 pg (25.7-33.7) 07/24/18 06:00 MCHC 32.6 g/dl (32.0-36.0) 07/24/18 06:00 RDW 13.4 % (11.6-15.6) 07/24/18 06:00 Plt Count 390 K/MM3 (134-434) D 07/24/18 06:00 MPV 9.1 fl (7.5-11.1) 07/24/18 06:00 Sodium 139 mmol/L (136-145) 07/24/18 06:00 Potassium 3.7 mmol/L (3.5-5.1) 07/24/18 06:00 Chloride 102 mmol/L (98-107) 07/24/18 06:00 Carbon Dioxide 22 mmol/L (21-32) 07/24/18 06:00 Anion Gap 14 MMOL/L (8-16) 07/24/18 06:00 BUN 6 mg/dL (7-18) L 07/24/18 06:00 Creatinine 0.7 mg/dL (0.55-1.3) 07/24/18 06:00 Creat Clearance w eGFR > 60 (>60) 07/24/18 06:00 Random Glucose 107 mg/dL (74-106) H 07/24/18 06:00 Calcium 9.6 mg/dL (8.5-10.1) 07/24/18 06:00 Total Bilirubin 0.4 mg/dL (0.2-1) 07/24/18 06:00 AST 28 U/L (15-37) 07/24/18 06:00 ALT 28 U/L (13-61) 07/24/18 06:00 Alkaline Phosphatase 103 U/L (45-117) 07/24/18 06:00 Total Protein 7.3 g/dl (6.4-8.2) 07/24/18 06:00 Albumin 3.6 g/dl (3.4-5.0) 07/24/18 06:00 Urine Color Ltyellow 07/23/18 17:00 Urine Appearance Slcloudy 07/23/18 17:00 Urine pH 6.0 (5.0-8.0) 07/23/18 17:00 Ur Specific [place] 1.006 (1.010-1.035) L 07/23/18 17:00 Urine Protein Negative (NEGATIVE) 07/23/18 17:00 Urine Glucose (UA) Negative (NEGATIVE) 07/23/18 17:00 Urine Ketones Negative (NEGATIVE) 07/23/18 17:00 Urine Blood Negative (NEGATIVE) 07/23/18 17:00 Urine Nitrite Negative (NEGATIVE) 07/23/18 17:00 Urine Bilirubin Negative (<2.0 mg/dL) 07/23/18 17:00 Urine Urobilinogen Negative mg/dL (0.2-1.0) 07/23/18 17:00 Ur Leukocyte Esterase Trace (NEGATIVE) 07/23/18 17:00 Urine WBC (Auto) None /hpf (3-5) 07/23/18 17:00 Urine RBC (Auto) None /hpf (0-3) 07/23/18 17:00 Ur Epithelial Cells Moderate /HPF (FEW) 07/23/18 17:00 RPR Titer Nonreactive (NONREACTIVE) 07/24/18 06:00 HIV 1&2 Antibody Screen Negative 07/23/18 12:15 HIV P24 Antigen Negative 07/23/18 12:15 Labs reviewed AOx3 no distress full ROM no adventitious breath sounds withdrawal sx HTN Patient w/ elevate BP, reports hx of treated with two meds. meds reviewed on hx of tx with amlodipine. Start low dose HCTZ 25 mg , los sodium diet. Patient advise to follow up with PCP upon completion of detox, verbalize understanding continue detox continue to monitor
[2018-07-24] MEDS: HYDROCHLOROTHIAZIDE 25 MG TABLET (FP) PO SCH (13:20)
[2018-07-24] MEDS: LATANOPROST 0.005% OPHTH SOLN 2.5ML BOTTLE OU SCH (22:28)
[2018-07-24] MEDS: THIAMINE HCL 100 MG TABLET (FP) PO SCH (22:29)
[2018-07-25] MEDS: chlordiazePOXIDE HCL 25 MG CAPSULE PO SCH ×2 (06:05→10:12)
[2018-07-25] MEDS: BENZTROPINE MESYLATE 1 MG TABLET (FP) PO SCH ×2 (10:12→22:37)
[2018-07-25] MEDS: PRENATAL VITAMINS W/ FOLIC ACID TABLET (FP) PO SCH (10:12)
[2018-07-25] MEDS: NICOTINE 21 MG/24 HOURS TOPICAL PATCH TD SCH (10:12)
[2018-07-25] MEDS: HYDROCHLOROTHIAZIDE 25 MG TABLET (FP) PO SCH (10:12)
[2018-07-25] MEDS: amLODIPine BESYLATE 10 MG TABLET (FP) PO SCH (10:13)
[2018-07-25] MEDS: TIMOLOL 0.5% OPHTHALMIC SOL 5 ML BOTTLE OU SCH ×2 (10:13→22:37)
[2018-07-25] MEDS: DORZOLAMIDE 2% HCL OPHTHALMIC SOLUTION 10 ML BOTTLE OU SCH ×2 (10:13→22:41)
--- NOTE | 2018-07-25 11:52 | PN ---
[facility] CIWA - CIWA Score Nausea/Vomitin-No Nausea/No Vomiting Muscle Tremors: 4-Moderate,w/Arms Extend Anxiety: 2 Agitation: 3 Paroxysmal Sweats: 2 Orientation: 0-Oriented Tacttile Disturbances: 0-None Auditory Disturbances: 0-None Visual Disturbances: 0-None Headache: 0-None Present CIWA-Ar Total Score: 11 S Progress Note (SOAP) Subjective: sweat tremor cold hot chill anxiety Objective: 07/25/18 11:54 Vital Signs Temperature 96.5 F L 07/25/18 09:46 Pulse Rate 95 H 07/25/18 09:46 Respiratory Rate 20 07/25/18 09:46 Blood Pressure 142/96 07/25/18 09:46 O2 Sat by Pulse Oximetry (%) Laboratory Last Values WBC 6.2 K/mm3 (4.0-10.0) 07/24/18 06:00 RBC 4.45 M/mm3 (3.60-5.2) 07/24/18 06:00 Hgb 13.4 GM/dL (10.7-15.3) 07/24/18 06:00 Hct 41.2 % (32.4-45.2) 07/24/18 06:00 MCV 92.6 fl (80-96) 07/24/18 06:00 MCH 30.2 pg (25.7-33.7) 07/24/18 06:00 MCHC 32.6 g/dl (32.0-36.0) 07/24/18 06:00 RDW 13.4 % (11.6-15.6) 07/24/18 06:00 Plt Count 390 K/MM3 (134-434) D 07/24/18 06:00 MPV 9.1 fl (7.5-11.1) 07/24/18 06:00 Sodium 139 mmol/L (136-145) 07/24/18 06:00 Potassium 3.7 mmol/L (3.5-5.1) 07/24/18 06:00 Chloride 102 mmol/L (98-107) 07/24/18 06:00 Carbon Dioxide 22 mmol/L (21-32) 07/24/18 06:00 Anion Gap 14 MMOL/L (8-16) 07/24/18 06:00 BUN 6 mg/dL (7-18) L 07/24/18 06:00 Creatinine 0.7 mg/dL (0.55-1.3) 07/24/18 06:00 Creat Clearance w eGFR > 60 (>60) 07/24/18 06:00 Random Glucose 107 mg/dL (74-106) H 07/24/18 06:00 Calcium 9.6 mg/dL (8.5-10.1) 07/24/18 06:00 Total Bilirubin 0.4 mg/dL (0.2-1) 07/24/18 06:00 AST 28 U/L (15-37) 07/24/18 06:00 ALT 28 U/L (13-61) 07/24/18 06:00 Alkaline Phosphatase 103 U/L (45-117) 07/24/18 06:00 Total Protein 7.3 g/dl (6.4-8.2) 07/24/18 06:00 Albumin 3.6 g/dl (3.4-5.0) 07/24/18 06:00 Urine Color Ltyellow 07/23/18 17:00 Urine Appearance Slcloudy 07/23/18 17:00 Urine pH 6.0 (5.0-8.0) 07/23/18 17:00 Ur Specific [place] 1.006 (1.010-1.035) L 07/23/18 17:00 Urine Protein Negative (NEGATIVE) 07/23/18 17:00 Urine Glucose (UA) Negative (NEGATIVE) 07/23/18 17:00 Urine Ketones Negative (NEGATIVE) 07/23/18 17:00 Urine Blood Negative (NEGATIVE) 07/23/18 17:00 Urine Nitrite Negative (NEGATIVE) 07/23/18 17:00 Urine Bilirubin Negative (<2.0 mg/dL) 07/23/18 17:00 Urine Urobilinogen Negative mg/dL (0.2-1.0) 07/23/18 17:00 Ur Leukocyte Esterase Trace (NEGATIVE) 07/23/18 17:00 Urine WBC (Auto) None /hpf (3-5) 07/23/18 17:00 Urine RBC (Auto) None /hpf (0-3) 07/23/18 17:00 Ur Epithelial Cells Moderate /HPF (FEW) 07/23/18 17:00 RPR Titer Nonreactive (NONREACTIVE) 07/24/18 06:00 HIV 1&2 Antibody Screen Negative 07/23/18 12:15 HIV P24 Antigen Negative 07/23/18 12:15 lab noted Assessment: 07/25/18 11:56 withdrawal sx Plan: continue detox
[2018-07-25] MEDS: chlordiazePOXIDE 5 MG CAPSULE PO SCH ×2 (17:41→22:36)
[2018-07-25] MEDS: THIAMINE HCL 100 MG TABLET (FP) PO SCH (22:36)
[2018-07-25] MEDS: LATANOPROST 0.005% OPHTH SOLN 2.5ML BOTTLE OU SCH (22:37)
[2018-07-26] MEDS: chlordiazePOXIDE 5 MG CAPSULE PO SCH ×2 (05:54→10:20)
[2018-07-26] MEDS: NICOTINE 21 MG/24 HOURS TOPICAL PATCH TD SCH (10:20)
[2018-07-26] MEDS: HYDROCHLOROTHIAZIDE 25 MG TABLET (FP) PO SCH (10:20)
[2018-07-26] MEDS: PRENATAL VITAMINS W/ FOLIC ACID TABLET (FP) PO SCH (10:20)
[2018-07-26] MEDS: amLODIPine BESYLATE 10 MG TABLET (FP) PO SCH (10:20)
[2018-07-26] MEDS: BENZTROPINE MESYLATE 1 MG TABLET (FP) PO SCH ×2 (10:20→22:31)
[2018-07-26] MEDS: TIMOLOL 0.5% OPHTHALMIC SOL 5 ML BOTTLE OU SCH ×2 (10:24→22:33)
[2018-07-26] MEDS: DORZOLAMIDE 2% HCL OPHTHALMIC SOLUTION 10 ML BOTTLE OU SCH ×2 (10:25→22:33)
--- NOTE | 2018-07-26 12:26 | PN ---
[facility] Progress Note (SOAP) Subjective: feeling better no tremor less sweat sleep better at night social with peers in day room Objective: 07/26/18 12:30 Vital Signs Temperature 97.7 F 07/26/18 09:21 Pulse Rate 101 H 07/26/18 09:21 Respiratory Rate 18 07/26/18 09:21 Blood Pressure 143/95 07/26/18 09:21 O2 Sat by Pulse Oximetry (%) Laboratory Last Values WBC 6.2 K/mm3 (4.0-10.0) 07/24/18 06:00 RBC 4.45 M/mm3 (3.60-5.2) 07/24/18 06:00 Hgb 13.4 GM/dL (10.7-15.3) 07/24/18 06:00 Hct 41.2 % (32.4-45.2) 07/24/18 06:00 MCV 92.6 fl (80-96) 07/24/18 06:00 MCH 30.2 pg (25.7-33.7) 07/24/18 06:00 MCHC 32.6 g/dl (32.0-36.0) 07/24/18 06:00 RDW 13.4 % (11.6-15.6) 07/24/18 06:00 Plt Count 390 K/MM3 (134-434) D 07/24/18 06:00 MPV 9.1 fl (7.5-11.1) 07/24/18 06:00 Sodium 139 mmol/L (136-145) 07/24/18 06:00 Potassium 3.7 mmol/L (3.5-5.1) 07/24/18 06:00 Chloride 102 mmol/L (98-107) 07/24/18 06:00 Carbon Dioxide 22 mmol/L (21-32) 07/24/18 06:00 Anion Gap 14 MMOL/L (8-16) 07/24/18 06:00 BUN 6 mg/dL (7-18) L 07/24/18 06:00 Creatinine 0.7 mg/dL (0.55-1.3) 07/24/18 06:00 Creat Clearance w eGFR > 60 (>60) 07/24/18 06:00 Random Glucose 107 mg/dL (74-106) H 07/24/18 06:00 Calcium 9.6 mg/dL (8.5-10.1) 07/24/18 06:00 Total Bilirubin 0.4 mg/dL (0.2-1) 07/24/18 06:00 AST 28 U/L (15-37) 07/24/18 06:00 ALT 28 U/L (13-61) 07/24/18 06:00 Alkaline Phosphatase 103 U/L (45-117) 07/24/18 06:00 Total Protein 7.3 g/dl (6.4-8.2) 07/24/18 06:00 Albumin 3.6 g/dl (3.4-5.0) 07/24/18 06:00 Urine Color Ltyellow 07/23/18 17:00 Urine Appearance Slcloudy 07/23/18 17:00 Urine pH 6.0 (5.0-8.0) 07/23/18 17:00 Ur Specific [place] 1.006 (1.010-1.035) L 07/23/18 17:00 Urine Protein Negative (NEGATIVE) 07/23/18 17:00 Urine Glucose (UA) Negative (NEGATIVE) 07/23/18 17:00 Urine Ketones Negative (NEGATIVE) 07/23/18 17:00 Urine Blood Negative (NEGATIVE) 07/23/18 17:00 Urine Nitrite Negative (NEGATIVE) 07/23/18 17:00 Urine Bilirubin Negative (<2.0 mg/dL) 07/23/18 17:00 Urine Urobilinogen Negative mg/dL (0.2-1.0) 07/23/18 17:00 Ur Leukocyte Esterase Trace (NEGATIVE) 07/23/18 17:00 Urine WBC (Auto) None /hpf (3-5) 07/23/18 17:00 Urine RBC (Auto) None /hpf (0-3) 07/23/18 17:00 Ur Epithelial Cells Moderate /HPF (FEW) 07/23/18 17:00 RPR Titer Nonreactive (NONREACTIVE) 07/24/18 06:00 HIV 1&2 Antibody Screen Negative 07/23/18 12:15 HIV P24 Antigen Negative 07/23/18 12:15 lab noted Assessment: 07/26/18 12:32 mild withdrawal sx Plan: medically supervised detox
[2018-07-26] MEDS: chlordiazePOXIDE HCL 10 MG CAPSULE PO SCH ×2 (18:25→22:31)
[2018-07-26] MEDS: THIAMINE HCL 100 MG TABLET (FP) PO SCH (22:31)
[2018-07-26] MEDS: LATANOPROST 0.005% OPHTH SOLN 2.5ML BOTTLE OU SCH (22:32)
[2018-07-27] MEDS: chlordiazePOXIDE HCL 10 MG CAPSULE PO SCH (05:45)
[2018-07-27 08:50] VITALS: BP 113/79; PULSE 92; TEMP 97.9
--- NOTE | 2018-07-27 09:05 | DS ---
[facility] Detox Discharge Summary Admission Date: 07/23/18 Discharge Date: 07/27/18 - History Present History: Alcohol Dependence Additional Comments: 58 years old female admitted on 07/23/18 for alcohol withdrawal sx completed alcohol detox regime tolerated well denies alcohol withdrawal sx alert oriented x 3 no acute distress aftercare [facility] - Physical Exam Results Vital Signs: Vital Signs Temperature 97.9 F 07/27/18 08:49 Pulse Rate 92 H 07/27/18 08:49 Respiratory Rate 18 07/27/18 08:49 Blood Pressure 113/79 07/27/18 08:49 O2 Sat by Pulse Oximetry (%) Pertinent Admission Physical Exam Findings: alcohol withdrawal sx Vital Signs Temperature 97.9 F 07/27/18 08:49 Pulse Rate 92 H 07/27/18 08:49 Respiratory Rate 18 07/27/18 08:49 Blood Pressure 113/79 07/27/18 08:49 O2 Sat by Pulse Oximetry (%) Laboratory Last Values WBC 6.2 K/mm3 (4.0-10.0) 07/24/18 06:00 RBC 4.45 M/mm3 (3.60-5.2) 07/24/18 06:00 Hgb 13.4 GM/dL (10.7-15.3) 07/24/18 06:00 Hct 41.2 % (32.4-45.2) 07/24/18 06:00 MCV 92.6 fl (80-96) 07/24/18 06:00 MCH 30.2 pg (25.7-33.7) 07/24/18 06:00 MCHC 32.6 g/dl (32.0-36.0) 07/24/18 06:00 RDW 13.4 % (11.6-15.6) 07/24/18 06:00 Plt Count 390 K/MM3 (134-434) D 07/24/18 06:00 MPV 9.1 fl (7.5-11.1) 07/24/18 06:00 Sodium 139 mmol/L (136-145) 07/24/18 06:00 Potassium 3.7 mmol/L (3.5-5.1) 07/24/18 06:00 Chloride 102 mmol/L (98-107) 07/24/18 06:00 Carbon Dioxide 22 mmol/L (21-32) 07/24/18 06:00 Anion Gap 14 MMOL/L (8-16) 07/24/18 06:00 BUN 6 mg/dL (7-18) L 07/24/18 06:00 Creatinine 0.7 mg/dL (0.55-1.3) 07/24/18 06:00 Creat Clearance w eGFR > 60 (>60) 07/24/18 06:00 Random Glucose 107 mg/dL (74-106) H 07/24/18 06:00 Calcium 9.6 mg/dL (8.5-10.1) 07/24/18 06:00 Total Bilirubin 0.4 mg/dL (0.2-1) 07/24/18 06:00 AST 28 U/L (15-37) 07/24/18 06:00 ALT 28 U/L (13-61) 07/24/18 06:00 Alkaline Phosphatase 103 U/L (45-117) 07/24/18 06:00 Total Protein 7.3 g/dl (6.4-8.2) 07/24/18 06:00 Albumin 3.6 g/dl (3.4-5.0) 07/24/18 06:00 Urine Color Ltyellow 07/23/18 17:00 Urine Appearance Slcloudy 07/23/18 17:00 Urine pH 6.0 (5.0-8.0) 07/23/18 17:00 Ur Specific [place] 1.006 (1.010-1.035) L 07/23/18 17:00 Urine Protein Negative (NEGATIVE) 07/23/18 17:00 Urine Glucose (UA) Negative (NEGATIVE) 07/23/18 17:00 Urine Ketones Negative (NEGATIVE) 07/23/18 17:00 Urine Blood Negative (NEGATIVE) 07/23/18 17:00 Urine Nitrite Negative (NEGATIVE) 07/23/18 17:00 Urine Bilirubin Negative (<2.0 mg/dL) 07/23/18 17:00 Urine Urobilinogen Negative mg/dL (0.2-1.0) 07/23/18 17:00 Ur Leukocyte Esterase Trace (NEGATIVE) 07/23/18 17:00 Urine WBC (Auto) None /hpf (3-5) 07/23/18 17:00 Urine RBC (Auto) None /hpf (0-3) 07/23/18 17:00 Ur Epithelial Cells Moderate /HPF (FEW) 07/23/18 17:00 RPR Titer Nonreactive (NONREACTIVE) 07/24/18 06:00 HIV 1&2 Antibody Screen Negative 07/23/18 12:15 HIV P24 Antigen Negative 07/23/18 12:15 lab noted - Treatment Hospital Course: Detox Protocol Followed, Detoxed Safely, Responded well, Discharged Condition Good, Rehab Referral Accepted Patient has Accepted a Rehab Referral to: [facility] - Medication Discharge Medications: Ambulatory Orders Haloperidol Decanoate [Haldol Decanoate 100] 75 mg IM MONTHLY 11/16/14 Benztropine Mesylate [Cogentin -] 1 mg PO BID #60 tablet 08/16/15 Amlodipine Besylate [Norvasc -] 10 mg PO DAILY #30 tablet 07/26/18 Dorzolamide HCl/Timolol Maleat [Cosopt Eye Drops] 1 drop OU BID #1 drops Latanoprost 0.005% Eye Drops [Xalatan 0.005% Eye Drops -] 1 drop OU HS #0 drops 07/26/18 Latanoprost 0.005% Eye Drops [Xalatan 0.005% Eye Drops -] 1 drop OU HS #1 bot - Diagnosis (1) Alcohol dependence with uncomplicated withdrawal Current Visit: Yes Status: Acute (2) Essential hypertension Current Visit: Yes Status: Chronic (3) Nicotine dependence Current Visit: Yes Status: Acute Qualifiers: Nicotine product type: cigarettes Substance use status: in withdrawal Qualified Code(s): F17.213 - Nicotine dependence, cigarettes, with withdrawal (4) Paranoid schizophrenia Current Visit: Yes Status: Suspected - AMA Did Patient Leave Against Medical Advice: No
== END 2018-07-27 09:47 | disposition home or self-care (01) | DRG 897 ==
LOC: YASAS 10:44 → Y6N 12:34
PROC: HZ2ZZZZ Detoxification Services for Substance Abuse Treatment (ICD-10-PCS; principal; 2018-07-23)
DX: F10.230 Alcohol dependence with withdrawal, uncomplicated (principal); F20.0 Paranoid schizophrenia; F17.213 Nicotine dependence, cigarettes, with withdrawal; I10 Essential (primary) hypertension; H40.9 Unspecified glaucoma; M13.862 Other specified arthritis, left knee; M13.861 Other specified arthritis, right knee; R21 Rash and other nonspecific skin eruption; Z91.5 Personal history of self-harm
CPT/HCPCS: 36415; 80053; 81003; 81015; 85027; 86593; 87389; J0735